=== PATIENT | male | born 1980 | race Caucasian/White ===

== ENCOUNTER 2019-11-20 08:12 | Emergency (ER) | payer BC ==
[~2019-11-20] VITALS: Ht 180.3 cm; Wt 92.6 kg
[2019-11-20 08:12] VITALS: BP 141/67
[2019-11-20] MEDS ORDERED: AFRI0.058 (09:00)
== END 2019-11-20 09:07 | disposition home or self-care (01) ==
LOC: M ED 08:12
DX: H65.02 Acute serous otitis media, left ear (principal); H93.12 Tinnitus, left ear; R09.81 Nasal congestion

== ENCOUNTER → 2022-02-13 | Outpatient (CLI) | payer BC, OTHER ==
[~2022-02-13] MED LIST: OXYM15SP2
== END ==
LOC: M SLEEP 20:00
PROVIDERS: ATTEND Family Medicine
DX: R06.83 Snoring (principal)